=== PATIENT | female | born 1955 | race Hispanic/Latino ===

== ENCOUNTER 2024-01-10 10:21 | Outpatient (CLI) | payer MEDICARE | END 2024-01-10 10:22 | disposition home or self-care (01) | LOC: CSHRAD 10:21 | PROVIDERS: ATTEND Family Medicine | DX: M25.511 Pain in right shoulder (principal) ==

== ENCOUNTER 2024-02-08 10:28 | Outpatient (CLI) | payer MEDICARE | END 2024-02-08 10:29 | disposition home or self-care (01) | LOC: CSHMAMMO 10:28 | PROVIDERS: ATTEND Family Medicine | DX: Z12.31 Encounter for screening mammogram for malignant neoplasm of breast (principal) | CPT/HCPCS: 77063; 77067 ==

== ENCOUNTER 2024-05-16 12:58 | Outpatient (CLI) | payer MEDICARE | END 2024-05-16 12:59 | disposition home or self-care (01) | LOC: CSHULT 12:58 | PROVIDERS: ATTEND Family Medicine | DX: R09.89 Other specified symptoms and signs involving the circulatory and respiratory systems (principal) | CPT/HCPCS: 93880 ==